=== PATIENT | male | born 2000 | race Caucasian/White ===

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

== ENCOUNTER 2020-03-04 03:08 | Emergency (ER) | payer OTHER, SELFPAY ==
[2020-03-04 03:10] VITALS: BP 124/64; PULSE 77; RESP 16; TEMP 36.6; O2SAT 99; BMI 26.6
--- NOTE | 2020-03-04 03:18 | ED.RN ---
RN CALLED FOR EKG, PULLED OLD EKGS FOR
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
--- NOTE | 2020-03-04 03:24 | EKG12_ITS ---
Test Reason : CHEST PAIN Blood Pressure : / mmHG Vent. Rate : 075 BPM Atrial Rate : 075 BPM P-R Int : 136 ms QRS Dur : 100 ms QT Int : 380 ms P-R-T Axes : 055 041 034 degrees QTc Int : 424 ms Normal sinus rhythm Normal ECG Confirmed by FREDERIC BILLS ([id number]), metropolitan editor YUMIKO PHELPS ([id number]) on 03/10/2020 8:04:41 AM Referred By: LISANDRA Confirmed By:FREDERIC BILLS
[2020-03-04] MEDS: Mag Hydrox/Al Hydrox/Simeth 30 ML UDC PO (03:50)
--- NOTE | 2020-03-04 04:13 | ED.VIS.CHEST ---
History of Present Illness Chief Complaint: Chest Pain Informant: Patient Narrative: Patient presenting for evaluation secondary to chest pain. Patient reports that he did eat just prior to going to bed. While he was laying in bed he had a sudden onset of chest pain. It is a continuous sharp type chest pain in his left anterior chest. He reports that it is worse with taking deep breath. There is no exertional component. No lightheadedness or shortness of breath. Patient denies any DVT or PE risk factors. Patient is a smoker but he denies any other cardiovascular risk factors. Patient denies recent infectious signs or symptoms such as fever cough. Review of systems otherwise negative. Past Medical History - Allergies and Home Meds Allergies/Adverse Reactions: Allergies prazosin Allergy (Verified 03/04/20 03:10) Other Primary Care Physician: Rosita Carlos NP-C [Primary Care Provider] - Prior records reviewed: Yes Past Medical History: None Surgical History: no surgical history Lives: Spouse/ Significant Other Smoking Status: Current every day smoker Alcohol: None Drugs: None Review of Systems All systems negative except as indicated General: Denies: Chills, Fever, Sweats Eyes: Denies: Visual changes - bilaterally, Diplopia ENT: Denies: Rhinorrhea, Sore throat Cardiovascular: Reports: Chest pain Respiratory: Denies: Dyspnea, Cough, Dyspnea on exertion Gastrointestinal: Denies: Abdominal pain, Nausea, Vomiting, Diarrhea, Melena, Hematochezia Genitourinary: Denies: Dysuria, Hematuria, Frequency Musculoskeletal: Denies: Back pain, Extremity Pain Skin: Denies: Rash, Wounds Neurological: Denies: Headache, Weakness, Numbness Physical Exam Vital Signs/Narrative: Vital Signs Temp Pulse Resp BP Pulse Ox 03/04/20 03:10 97.9 F 77 16 124/64 H 99 Inital Vital Signs reviewed: Yes General: Well nourished, Well developed, No Acute Distress Head: Normocephalic, Atraumatic Eyes: Perrl, EOMI ENT: Moist mucous membranes, No rhinorrhea Neck: Supple, Nontender Cardiovascular: Regular rate, Regular rhythm, No murmurs Respiratory: No distress, CTA bilaterally, Chest nontender Abdomen: Soft, Nontender, Nondistended, Normal bowel sounds Back: Nontender, Normal Inspection Extremities: Nontender, No edema Skin: Normal color, No rash Neurological: Alert, Oriented x3, Cranial nerves II-XII grossly intact, Normal Strength, Normal Sensation Psychological: Normal affect, Normal Mood Diagnostic/Tx/Re-eval Chest X-Ray - ED: 2 View, Read by ED Physician, Read by Radiologist, Normal - EKG Initial EKG Interpretation: - - Sinus rhythm at [address] segments normal T waves normal PA and QTc intervals no evidence of WPW or Brugada morphology no acute ischemia or arrhythmia - Medical Decision Making Patient presented for evaluation secondary to chest pain. He was ordered a GI cocktail. Chest x-ray by my personal review as well as radiology is negative. EKG unremarkable. Patient had modest improvement of his chest pain with a GI cocktail. Patient is capital PE RC negative, there is no indication for work-up of PE. Patient's heart score is a maximum of 1 there is no indication for further work-up for acute coronary syndrome. Patient's symptoms are likely secondary to reflux. Patient was recommended to discontinue late-night eating, and to follow-up with primary care as needed. ED Disposition - Plan for ED Patient: Disposition: Home or Assisted Living Diagnosis: Chest pain, GERD (gastroesophageal reflux disease) Instructions: ED Chest Pain NonCardiac, ED ACID INDIGESTION Adult Referrals: Rosita Carlos, YONI-C [Primary Care Provider] - 5-7 Days
[2020-03-04 04:24] VITALS: BP 101/55; PULSE 87; RESP 17; O2SAT 98
== END 2020-03-04 04:24 | disposition home or self-care (01) ==
PROVIDERS: Emergency Provider Emergency Medicine; PCP Nurse Practitioner Primary Care
DX: R07.9 Chest pain, unspecified (principal); K21.9 Gastro-esophageal reflux disease without esophagitis; F17.200 Nicotine dependence, unspecified, uncomplicated
CPT/HCPCS: 71046; 93005; 99283

== ENCOUNTER 2021-09-18 04:41 | Emergency (ER) | payer OTHER, SELFPAY ==
[2021-09-18 04:48] VITALS: BP 143/81; PULSE 72; RESP 16; TEMP 36.3; O2SAT 100; BMI 27.4
[2021-09-18 05:36] LABS: Absolute Lymphocyte Count 2.06 X10^3/uL (0.83-4.51); Absolute Neutrophil Count 3.6 X10^3/uL (2.0-7.7); Basophil# 0.04 X10^3/uL; Basophil% 0.6 % (0-1); Eosinophil# 0.03 X10^3/uL; Eosinophils% 0.5 % (0-5); Hematocrit 44.6 % (40-54); Hemoglobin 15.3 g/dL (13.0-16.5); Lymphocyte # 2.06 X10^3/ul (0.83-4.51); Lymphocyte % 33.1 % (19-41); Mean Corp Hgb Conc 34.3 g/dL (32-36); Mean Corpuscular Hgb 29.8 pg (27.0-32.0); Mean Corpuscular Volume 86.9 fL (80-94); Mean Platelet Vol. 9.5 fl (6.2-12.0); Monocyte# 0.43 X10^3/uL; Monocyte% 6.9 % (0-10); NRBC Flagged by Analyzer 0 % (0-5); Neutrophil # 3.64 X10^3/uL (2.7-7.7); Neutrophil % 58.6 % (47-70); POSITIVE MORPHOLOGY YES; Platelet Count 342 K/mm3 (150-450); RBC Distribution Width CV 12.5 % (11.6-14.6); RBC Distribution Width SD 39.7 fl (35.1-43.9); Red Blood Count 5.13 M/mm3 (4.6-6.2); White Blood Count 6.2 K/mm3 (4.4-11.0)
[2021-09-18 05:42] VITALS: RESP 16
[2021-09-18] MEDS: Diphth,Pertuss(Acell),Tet Vac 0.5 ML Vial IM (05:45)
[2021-09-18 05:51] LABS: Anion Gap 9 (5-15); BUN 10 mg/dL (7-18); BUN/Creat Ratio 10.6 RATIO (10-20); Calcium,Total 8.7 mg/dL (8.5-10.1); Chloride 109 mmol/L (98-107); Creatinine, Serum 0.94 mg/dL (0.70-1.30); EST Glomerular Filtration Rate 106 mL/min (>60); Est Glom Filt Rate - Afr Amer 129 mL/min (>60); Estimated Creatinine Clearance 112.18 ml/min; Glucose 93 mg/dL (74-106); Potassium 3.8 mmol/L (3.5-5.1); Sodium Level 144 mmol/L (136-145)
[2021-09-18 05:53] LABS: Acetaminophen (Tylenol) Level < 2.0 ug/mL (10.0-30.0); Salicylate < 1.7 mg/dL (2.8-20.0)
[2021-09-18 06:00] LABS: Amphetamine Urine VISTA NEGATIVE (<1000 ng/mL); Barbiturate Urine VISTA NEGATIVE (< 200 ng/mL); Benzodiazepine Urine VISTA NEGATIVE (< 200 ng/mL); Cocaine Urine VISTA NEGATIVE (< 300 ng/mL); Ecstacy Urine VISTA NEGATIVE (< 500 ng/mL); Methadone Urine VISTA NEGATIVE (< 300 ng/mL); PCP Urine VISTA NEGATIVE (< 25 ng/mL); THC Urine VISTA NEGATIVE (< 50 ng/mL); Vista UDS pH Range 6
[2021-09-18 06:04] VITALS: RESP 15
[2021-09-18 06:10] LABS: Differential Indicated SCAN CRITERIA MET
--- NOTE | 2021-09-18 07:09 | ED.RN ---
[facility] AWARE PT NEEDS TO BE SEEN. [facility] WILL BE CALLING.
--- NOTE | 2021-09-18 07:18 | NURSING ---
FAXED CHART TO [facility]
--- NOTE | 2021-09-18 07:19 | EDS_ITS ---
HPI History of Present Illness Chief Complaint: Suicidal Narrative Narrative: Patient is a 21-year-old male who was brought in by EMS with reported suicidal ideation. 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 He states that he still continues to drink however. He states that last evening he got drunk and does not remember cutting his forearms but states he must of done so when he was drunk. He states that he was sleeping when his fianc?e called 911 because he had cut himself. The patient states that he has no homicidal or suicidal ideation at this time. He does admit to one previous voluntary psychiatric admission approximately 3 to 4 years ago when he was using drugs. He states that this time he is here because of his fianc?e's concern but adamantly denies any homicidal or suicidal ideation. PFSH [facility] Home Medications NK 03/04/20 [History Last Taken Unknown] Allergy/AdvReac Type Severity Reaction Status Date / Time prazosin Allergy Other Verified 09/18/21 04:48 Social History Smoking Status: Current every day smoker tobacco type: cigarettes ROS ROS ED Constitutional Constitutional ED: Denies chills or fever(s) ENT ENT ED: Denies sore throat Cardiovascular Cardiovascular: Denies chest pain Respiratory/Chest Respiratory/Chest: Denies cough or dyspnea Gastrointestinal Gastrointestinal: Denies abdominal pain, diarrhea, nausea or vomiting Genitourinary Genitourinary ED: Denies dysuria Musculoskeletal Musculoskeletal: Denies myalgias Integumentary Denies rash Neurologic Neurologic: Denies headache(s) Psychiatric Psychiatric: Denies suicidal ideation or suicidal thoughts Hematologic/Lymphatic Hematologic/Lymphatic: Denies easy bleeding or easy bruising EXAM Physical Exam Const Vital Signs: 09/18/21 04:48 09/18/21 05:42 09/18/21 06:04 Temperature 97.3 F L Temperature Source Oral Pulse Rate 72 Respiratory Rate 16 16 15 Blood Pressure 143/81 H Blood Pressure Mean 101 Pulse Ox 100 Oxygen Delivery Method Room Air Positive well nourished and well developed General Appearance ED: well developed Eyes PERRL and EOMs intact bilaterally Neck supple Resp normal respiratory effort and clear to auscultation bilaterally Cardio regular rate and regular rhythm GI normal to inspection, nondistended, normoactive bowel sounds, non-tender, non- distended and no masses Auscultation: normoactive bowel sounds Palpation: soft Extremity normal to inspection Extremity Narrative: Patient has linear superficial abrasions to the volar aspect of the left forearm. He has similar abrasions to the right forearm which are slightly deeper in nature but only dermal layer deep and without active bleeding or foreign body present. No ligamentous or tendon injury noted Neuro oriented x3 and CN's II-XII intact bilaterally Sensorium / Orientation: alert Motor Exam: strength 5/5 throughout Psych mental status grossly normal Psych Narrative: No homicidal or suicidal ideation Skin no rashes or lesions noted Skin Narrative: Soft tissue abrasions to the bilateral forearms as documented above MDM MDM MDM Narrative Medical decision making narrative: Patient presented to the ER in no acute distress and adamantly denied any homicidal or suicidal ideation. At this time there is a conflict and history between the patient's fianc? and the patient. However as the patient appears clinically sober and is adamantly denying homicidal or suicidal ideation I will not perform a pink slip on him at this time. However patient will have basic laboratory screens obtained and will still talk to crisis center to get a second opinion if patient should need psychiatric placement. I feel that if crisis center agrees that patient is continuing to say is not homicidal or suicidal and are comfortable with discharge that is an appropriate/acceptable plan at this time Lab Data Attestation: I reviewed the patient's lab results. Labs: Laboratory Results - last 24 hr 09/18/21 09/18/21 09/18/21 05:20 05:20 05:20 WBC 6.2 RBC 5.13 Hgb 15.3 Hct 44.6 MCV 86.9 MCH 29.8 MCHC 34.3 RDW Std Deviation 39.7 RDW Coeff of Barry 12.5 Plt Count 342 MPV 9.5 Immature Gran % (Auto) 0.300 Neut % (Auto) 58.6 Lymph % (Auto) 33.1 Mclean % (Auto) 6.9 Eos % (Auto) 0.5 Baso % (Auto) 0.6 Absolute Neuts (auto) 3.6 Absolute Lymphs (auto) 2.06 Nucleated RBC % 0 Sodium Potassium Chloride Carbon Dioxide Anion Gap BUN Creatinine Estim Creat Clear Calc Est GFR (MDRD) Af Amer Est GFR (MDRD) Non-Af BUN/Creatinine Ratio Glucose Calcium Salicylates < 1.7 L Urine Opiates Screen NEGATIVE Urine Methadone Screen NEGATIVE Acetaminophen < 2.0 L Ur Barbiturates Screen NEGATIVE Ur Phencyclidine Scrn NEGATIVE Ur Amphetamines Screen NEGATIVE U Methamphetamin-MDMA NEGATIVE U Benzodiazepines Scrn NEGATIVE Urine Cocaine Screen NEGATIVE U Cannabinoids Screen NEGATIVE Ur Drug Screen Comment Ethyl Alcohol 142.0 09/18/21 05:20 WBC RBC Hgb Hct MCV MCH MCHC RDW Std Deviation RDW Coeff of Barry Plt Count MPV Immature Gran % (Auto) Neut % (Auto) Lymph % (Auto) Mclean % (Auto) Eos % (Auto) Baso % (Auto) Absolute Neuts (auto) Absolute Lymphs (auto) Nucleated RBC % Sodium 144 Potassium 3.8 Chloride 109 H Carbon Dioxide 26.0 Anion Gap 9 BUN 10 Creatinine 0.94 Estim Creat Clear Calc 112.18 Est GFR (MDRD) Af Amer 129 Est GFR (MDRD) Non-Af 106 BUN/Creatinine Ratio 10.6 Glucose 93 Calcium 8.7 Salicylates Urine Opiates Screen Urine Methadone Screen Acetaminophen Ur Barbiturates Screen Ur Phencyclidine Scrn Ur Amphetamines Screen U Methamphetamin-MDMA U Benzodiazepines Scrn Urine Cocaine Screen U Cannabinoids Screen Ur Drug Screen Comment Ethyl Alcohol Discharge Plan Triage Chief Complaint: Suicidal ED Provider: John Ryder Dx/Rx/DC Orders Clinical Impression: Alcohol intoxication, Abrasion of forearm without infection, Depression Instructions: Depression: Tips to Help Yourself Prescriptions: No Action NK RF: 0 Primary Care Provider: Rosita Carlos NP Referrals: Rosita Carlos NP, TELEPHONE WORKER-C [Primary Care Provider] -
[2021-09-18 07:38] VITALS: RESP 16
[2021-09-18 08:06] VITALS: BP 135/76; PULSE 81; RESP 14; O2SAT 97
== END 2021-09-18 08:08 | disposition home or self-care (01) ==
PROVIDERS: Emergency Provider Emergency Medicine; PCP Nurse Practitioner Primary Care; Visit Provider Emergency Medicine
DX: F10.129 Alcohol abuse with intoxication, unspecified (principal); F32.A Depression, unspecified; F17.210 Nicotine dependence, cigarettes, uncomplicated; S50.819A Abrasion of unspecified forearm, initial encounter; X58.XXXA Exposure to other specified factors, initial encounter
CPT/HCPCS: 80048; 80307; 80329; 82077; 85025; 87426; 90715; 99285; G0480

== ENCOUNTER 2022-03-20 14:48 | Emergency (ER) | payer OTHER, SELFPAY ==
[2022-03-20 14:49] VITALS: BP 130/65; PULSE 74; RESP 16; TEMP 36.6; O2SAT 100; BMI 25.8
--- NOTE | 2022-03-20 15:19 | CT_ITS ---
STUDY: CT ABDOMEN AND PELVIS WITH CONTRAST REASON FOR EXAM: Male, 22 years old. Luq pain RADIATION DOSAGE (If Supplied By Facility): CTDIvol = ( 9.95 ) mGy, DLP = ( 491.57 ) mGycm TECHNIQUE: Transaxial images were obtained from the dome of the diaphragm to the symphysis pubis without oral contrast. IV 100mL Isovue-370 was administered. Sagittal and coronal images were reconstructed. Individualized dose optimization techniques were used for this CT. COMPARISON: None. FINDINGS: 3 mm noncalcified smoothly marginated nodule in the right lung base. No specific follow-up given patient''s age. The visualized portions of the heart are within normal limits. Normal liver. Normal gallbladder and extrahepatic biliary system. Normal spleen. Normal pancreas. Normal bilateral adrenal glands. Normal right kidney. Normal left kidney. Normal visualized stomach. Normal small intestine. Mild rectal wall thickening and perirectal stranding evident on image 88 series 2. Trace pelvic free fluid. There is non-visualization of the appendix. Normal abdominal aorta. Normal inferior vena cava. Normal retroperitoneum. Normal urinary bladder. Normal abdominal wall. Normal osseous structures. CT/Abdomen/Pelvis W IV Cont ONLY IMPRESSION: Mild rectal wall thickening and perirectal stranding suggesting proctitis/colitis. Trace pelvic free fluid. Electronically Signed: Jomar Barragan MD ([place]) at 16:09 EDT ,
--- NOTE | 2022-03-20 15:20 | EDS_ITS ---
HPI HPI - GI History of Present Illness Chief Complaint: GI Bleed Narrative Narrative: 22-year-old male presenting with left upper quadrant abdominal pain which is mild. He does state the pain migrates periodically around his abdomen. He has had a couple episodes where he was nauseous and vomit in his mouth but did not spit it out because he was driving. He has not been retching. Patient does report that he is an alcoholic and quit drinking 4 days ago. He states that he drank about a 12 pack of beer a day. He does not think he is in withdrawal. He notes that the last couple of days has had some blood in his stool. He states is not clotting. He has not any history of GI bleeding. He states he has no history of Crohn's or UC colitis. No fevers. He is not lightheaded or dizzy. He notes no skin color changes. No history of hemorrhoids. [facility] Medical History Substance abuse Home Medications ondansetron 4 mg disintegrating tablet 4 mg PO Q8H PRN nausea and vomiting #10 tabs 03/20/22 [Rx Last Taken Unknown] Allergy/AdvReac Type Severity Reaction Status Date / Time prazosin Allergy Other Verified 03/20/22 14:51 Social History Smoking Status: Current every day smoker tobacco type: e-cigarettes ROS ROS ED Constitutional Constitutional ED: Denies chills or fever(s) ENT ENT ED: Denies rhinorrhea or sore throat Cardiovascular Cardiovascular: Denies chest pain or palpitations Respiratory/Chest Respiratory/Chest: Denies cough or dyspnea Gastrointestinal Gastrointestinal: Reports abdominal pain, nausea, vomiting and other Details: Bloody stools with clots Genitourinary Genitourinary ED: Denies dysuria or hematuria Musculoskeletal Musculoskeletal: Denies arthralgias or back pain Integumentary Denies abscess or Abrasions Neurologic Neurologic: Denies headache(s) or paresthesias Psychiatric Psychiatric: Denies anxiety or depression EXAM Physical Exam Const Vital Signs: 03/20/22 14:49 Temperature 98 F Temperature Source Temporal Pulse Rate 74 Respiratory Rate 16 Blood Pressure 130/65 H Blood Pressure Mean 86 Pulse Ox 100 Oxygen Delivery Method Room Air Positive well nourished and well developed General Appearance ED: well developed and NAD; Negative for pallor HEENT Reports moist mucous membranes normocephalic and atraumatic Eyes PERRL and EOMs intact bilaterally General Eye ED: Negative for pale conjunctiva or scleral icterus Resp normal respiratory effort Cardio regular rate and regular rhythm GI Palpation: tender LUQ; Negative for guarding or rigid Narrative: No hemorrhoids noted. No fissures. No active bleeding. Back/Spine no CVA tenderness Neuro CN's II-XII intact bilaterally Sensorium / Orientation: alert, oriented to person, oriented to place and oriented to time Motor Exam: strength 5/5 throughout Psych mental status grossly normal and thought process normal Skin General Skin Exam: Negative for jaundice or pallor MDM MDM MDM Narrative Medical decision making narrative: 20-year-old male presenting with bloody stools for a few days. He states is sporadic. He has pain in the left upper quadrant and sometimes he has pain around his rectum but he states the pain in his rectum he was in there for a very long time. He states this also comes and goes but no history of Crohn's or UC. Blood work today shows no leukocytosis. Hemoglobin is stable at 15.0 is unchanged. Platelets normal at 313. Renal function and electrolytes within normal limits. LFTs are normal. Lipase is normal. Patient required nothing for pain or nausea in the ED. I obtained a CT of the abdomen pelvis with IV contrast which shows mild rectal wall thickening suggesting colitis. He has no urinary symptoms. I suspect that his colitis is very mild as he has a benign exam and he has not have any pain around his rectum currently. He only has a pain in the left upper quadrant and his abdominal is benign. I recommended that he try changing his diet to a bland diet. He is given Zofran for nausea. He is encouraged with plenty of fluids. The patient did inform me that he is 4 days out from quitting drinking and has been a long-term drinker of 12 pack a day of beer. He is not withdrawing in any way he does not feel. He does not request any resources for this. Since he is on his fourth day and is asymptomatic I feel he will likely be well. He is encouraged to continue to abstain from drinking. Patient was given follow-up with Dr. Coello. Return precautions were discussed at length. Impression: 1. GI bleed stable 2. Colitis Lab Data Attestation: I reviewed the patient's lab results. Labs: Laboratory Results - last 24 hr 03/20/22 03/20/22 15:27 15:27 WBC 6.6 RBC 4.89 Hgb 15.0 Hct 42.5 MCV 86.9 MCH 30.7 MCHC 35.3 RDW Std Deviation 38.2 RDW Coeff of Barry 11.9 Plt Count 313 MPV 10.0 Immature Gran % (Auto) 0.300 Neut % (Auto) 62.4 Lymph % (Auto) 23.5 Love % (Auto) 9.1 Eos % (Auto) 4.1 Baso % (Auto) 0.6 Absolute Neuts (auto) 4.1 Absolute Lymphs (auto) 1.55 Nucleated RBC % 0 Sodium 140 Potassium 3.9 Chloride 108 H Carbon Dioxide 28.0 Anion Gap 4 L BUN 18 Creatinine 1.04 Estim Creat Clear Calc 100.54 Est GFR (MDRD) Af Amer 115 Est GFR (MDRD) Non-Af 95 BUN/Creatinine Ratio 17.3 Glucose 120 H Calcium 8.8 Total Bilirubin 0.30 AST 24 ALT 32 Alkaline Phosphatase 85 Total Protein 6.9 Albumin 3.9 Globulin 3.0 Albumin/Globulin Ratio 1.3 Lipase 174 Radiography Diagnostic Testing: Clinical Impression(s) from Imaging Studies Abdomen/Pelvis CT 03/20/22 15:19 IMPRESSION: Mild rectal wall thickening and perirectal stranding suggesting proctitis/colitis. Trace pelvic free fluid. Electronically Signed: Jomar Barragan MD ([place]) at 16:09 EDT Reading Location ID and State: [facility] / [place] , Service support , Discharge Plan Triage Chief Complaint: GI Bleed ED Provider: Kennedy Cline Dx/Rx/DC Orders Instructions: ED Understanding Colitis, ED Lower GI Bleeding (Stable) Prescriptions: New ondansetron 4 mg tablet,disintegrating 4 mg PO Q8H PRN (Reason: nausea and vomiting) Qty: 10 0RF Primary Care Provider: Rosita Carlos NP Referrals: Friend,DO Devyn [STAFF PHYSICIAN] - 3-5 Days Rosita Carlos NP, KETTLE COOK-C [Primary Care Provider] - Disposition Disposition: Home, Self Care Discharge Date/Time: 03/20/22 16:50
[2022-03-20 15:41] LABS: Absolute Lymphocyte Count 1.55 X10^3/uL (0.83-4.51); Absolute Neutrophil Count 4.1 X10^3/uL (2.0-7.7); Basophil# 0.04 X10^3/uL; Basophil% 0.6 % (0-1); Eosinophil# 0.27 X10^3/uL; Eosinophils% 4.1 % (0-5); Hematocrit 42.5 % (40-54); Lymphocyte # 1.55 X10^3/ul (0.83-4.51); Lymphocyte % 23.5 % (19-41); Mean Corp Hgb Conc 35.3 g/dL (32-36); Mean Corpuscular Hgb 30.7 pg (27.0-32.0); Mean Corpuscular Volume 86.9 fL (80-94); Monocyte% 9.1 % (0-10); NRBC Flagged by Analyzer 0 % (0-5); Neutrophil # 4.12 X10^3/uL (2.7-7.7); Neutrophil % 62.4 % (47-70); Platelet Count 313 K/mm3 (150-450); RBC Distribution Width CV 11.9 % (11.6-14.6); RBC Distribution Width SD 38.2 fl (35.1-43.9); Red Blood Count 4.89 M/mm3 (4.6-6.2); White Blood Count 6.6 K/mm3 (4.4-11.0)
[2022-03-20 15:54] LABS: ALB/GLOB Ratio 1.3 RATIO (0.9-2.4); AST(SGOT) 24 U/L (15-37); Alanine Aminotransfer ALT/SGPT 32 U/L (16-61); Albumin, Serum 3.9 g/dL (3.2-5.0); Alkaline Phosphatase 85 U/L (45-117); Anion Gap 4 (5-15); BUN 18 mg/dL (7-18); BUN/Creat Ratio 17.3 RATIO (10-20); Calcium,Total 8.8 mg/dL (8.5-10.1); Chloride 108 mmol/L (98-107); Creatinine, Serum 1.04 mg/dL (0.70-1.30); EST Glomerular Filtration Rate 95 mL/min (>60); Est Glom Filt Rate - Afr Amer 115 mL/min (>60); Estimated Creatinine Clearance 100.54 ml/min; Glucose 120 mg/dL (74-106); Lipase 174 U/L (73-393); Potassium 3.9 mmol/L (3.5-5.1); Protein, Total 6.9 g/dL (6.4-8.2); Sodium Level 140 mmol/L (136-145)
== END 2022-03-20 16:50 | disposition home or self-care (01) ==
PROVIDERS: Emergency Provider Student in an Organized Health Care Education/Training Program; PCP Nurse Practitioner Primary Care; Visit Provider Student in an Organized Health Care Education/Training Program
DX: K92.2 Gastrointestinal hemorrhage, unspecified (principal); F17.200 Nicotine dependence, unspecified, uncomplicated; F10.10 Alcohol abuse, uncomplicated
CPT/HCPCS: 74177; 80053; 83690; 85025; 99283; Q9967; A4216

== ENCOUNTER 2023-01-25 13:08 | Emergency (ER) | payer OTHER, SELFPAY ==
[2023-01-25 13:09] VITALS: BP 126/75; PULSE 71; RESP 16; TEMP 36.8; O2SAT 98; BMI 29.5
--- NOTE | 2023-01-25 13:44 | ED.VIS.GI ---
HPI HPI - GI History of Present Illness Chief Complaint: Abd Pain Detail of Chief Complaint: Nausea, vomiting and diarrhea. Informant: patient Abdominal Pain/Flank Pain Onset: Today and Yesterday Context: Gradual Onset Timing: Intermittent Quality: Cramping Location: LLQ Current Severity: Mild Maximum Severity: Mild Worsened by: Nothing Relieved by: Nothing Nausea/Vomiting/Emesis GI Symptom: Positive for Nausea and Vomiting Onset: Today and Yesterday Severity: Mild Diarrhea/Melena/Hematochezia GI Symptom: Positive for Diarrhea; Negative for Melena or Hematochezia Onset: Today and Yesterday Stool Quality: Positive for Loose Severity: Mild Associated Symptoms Associated Symptoms: Negative for Dysuria, Frequency or Hematuria Narrative Narrative: 22-year-old male missing a past medical or surgical history. No prior abdominal surgeries. States yesterday and today has had nausea vomiting and diarrhea. He said he has had green stool. And mild left lower quadrant burning and cramping. Denies any dysuria. No history of stones. No trauma to his abdomen. No one else at home is ill. He is able to hold down liquids. Prior similar symptoms: Yes Recent Illness/Hospitalization: No PFSH PFSH Medical History Substance abuse Home Medications ondansetron 4 mg disintegrating tablet 4 mg PO Q8H PRN nausea and vomiting #10 tabs 03/20/22 [Rx Last Taken Unknown] Allergy/AdvReac Type Severity Reaction Status Date / Time prazosin Allergy Other Verified 01/25/23 13:11 Social History Smoking Status: Current every day smoker tobacco type: e-cigarettes ROS ROS ED ROS Narrative Nausea, vomiting and diarrhea. Left lower quadrant abdominal cramping. Review of Systems ROS Unobtainable: Denies due to encephalopathy Constitutional Constitutional ED: Denies chills ENT ENT ED: Denies ear pain Cardiovascular Cardiovascular: Denies chest pain Respiratory/Chest Respiratory/Chest: Denies cough Gastrointestinal Gastrointestinal: Reports abdominal pain, diarrhea, nausea and vomiting; Denies constipation or melena Genitourinary Genitourinary ED: Denies dysuria or hematuria Musculoskeletal Musculoskeletal: Denies arthralgias Integumentary Denies abscess Neurologic Neurologic: Denies headache(s) Psychiatric Psychiatric: Denies anxiety Endocrine Endocrinology: Denies polydipsia Hematologic/Lymphatic Hematologic/Lymphatic: Denies easy bleeding Allergic/Immunologic Allergic/Immunologic ED: Denies mouth swelling or tongue swelling EXAM Physical Exam Narrative Exam Narrative: I do a male no acute distress. Vital signs stable afebrile. He does not look septic nor toxic nor dehydrated. HEENT exam unremarkable. Moist extremities. Neck nontender no lymphadenopathy. Lungs clear. Heart regular rate and rhythm rate about 70 no murmur. Chest wall nontender. Abdomen soft, nontender, nondistended normal bowel sounds no peritoneal signs. He has no significant abdominal tenderness. There is no hernia or mass. No signs of obstruction. No organomegaly. Normal bowel sounds and soft. Moving all 4 extremities. Back nontender. Neurologic exam normal. Very benign well-appearing exam. Const Vital Signs: 01/25/23 13:09 Temperature 98.3 F Temperature Source Temporal Pulse Rate 71 Respiratory Rate 16 Blood Pressure 126/75 H Blood Pressure Mean 92 Pulse Ox 98 Oxygen Delivery Method Room Air Positive well nourished and well developed; Negative for obese, cachectic, contractures or unkempt General Appearance ED: well developed and NAD; Negative for unkempt, cachectic, contractures or pallor Nutritional Appearance: Negative for cachectic or obese HEENT Reports moist mucous membranes normocephalic and atraumatic; Negative for trauma or tenderness Eyes PERRL and EOMs intact bilaterally General Eye ED: Negative for pale conjunctiva or scleral icterus Neck no lymphadenopathy, supple and no JVD General: Negative for tenderness Carotids: Negative for other Lymph Lymphatic: Negative for other Resp normal respiratory effort and clear to auscultation bilaterally Effort and Inspection: Negative for respiratory distress Auscultation: Negative for rales, rhonchi or wheezes Cardio regular rate, regular rhythm, S1 normal heart sound, S2 normal heart sound and no murmurs Rate: Negative for bradycardia or tachycardic Rhythm: Negative for abnormal rhythm GI non-tender, non-distended and no masses Inspection: Negative for abdominal distention Auscultation: normoactive bowel sounds Palpation: soft; Negative for tender, guarding, rigid, hepatomegaly, splenomegaly, hernia, mass, pulsatile mass or rebound tenderness present Back/Spine no CVA tenderness General Back: Negative for CVA tenderness Cervical Spine: Negative for cervical spine tenderness Thoracic Spine / Upper Back: Negative for thoracic spinal tenderness Lumbar Spine / Lower Back: Negative for lumbar spinal tenderness Coccyx: Negative for other Extremity full ROM General Extremety ED: Negative for edema or tenderness General Extremity: Negative for edema Neuro CN's II-XII intact bilaterally and moves all extremities Sensorium / Orientation: alert, oriented to person, oriented to place and oriented to time; Negative for orientation impaired, confused, lethargic or stuporous Motor Exam: strength 5/5 throughout Psych mental status grossly normal and thought process normal Appearance: Negative for unkempt Attitude: No agitated Mood & Affect: Negative for depressed or anxious Skin no wounds General Skin Exam: Negative for jaundice or pallor Lesions: no lesions Rashes: no rashes Trauma: Negative for abrasion Nails: Negative for discolored MDM MDM MDM Narrative Medical decision making narrative: Well-appearing 22-year-old sounds like he has a viral gastroenteritis. Exam benign. He does not need any labs or imaging. He is not dehydrated he does not need IV fluids. I will give him p.o. Zofran. He will be discharged home with Zofran prescription. Return if worse or follow-up if is not improving. Clinically this is not cholecystitis, appendicitis or diverticulitis. There is no bowel obstruction. History & Record Review Discussion w/independent historian: Patient Lab Data Attestation: I reviewed the patient's lab results. Discharge Plan Triage Chief Complaint: Abd Pain ED Provider: Thom Tirado Dx/Rx/DC Orders Clinical Impression: Viral gastroenteritis Instructions: Viral Gastroenteritis Prescriptions: No Action ondansetron 4 mg tablet,disintegrating 4 mg PO Q8H PRN (Reason: nausea and vomiting) Qty: 10 0RF Primary Care Provider: Rosita Carlos NP Referrals: Rosita Carlos INSURANCE CLAIMS SPECIALIST, [facility]URANCE CLAIMS [facility]IST[facility] [Primary Care Provider] - 3-5 Days if not improving Activity Restrictions/Additional Instructions: Zofran as needed for nausea and vomiting. Plenty of fluids and rest. Increase your diet slowly as tolerated. Follow-up if not improving or return if worse. Disposition Disposition: Home, Self Care
[2023-01-25] MEDS: Ondansetron ODT 4 MG Tablet PO (14:01)
== END 2023-01-25 14:00 | disposition home or self-care (01) ==
PROVIDERS: Emergency Provider Emergency Medicine; PCP Nurse Practitioner Primary Care; Visit Provider Emergency Medicine
DX: A08.4 Viral intestinal infection, unspecified (principal); F17.290 Nicotine dependence, other tobacco product, uncomplicated
CPT/HCPCS: 99283

== ENCOUNTER 2023-11-14 13:19 | Emergency (ER) | payer OTHER, SELFPAY ==
[2023-11-14 13:20] VITALS: BP 125/100; PULSE 65; RESP 18; TEMP 36.6; O2SAT 97; BMI 28.0
--- NOTE | 2023-11-14 13:24 | ED.RN ---
Pt decided not to stay d/t there being a wait.
--- OUTSIDE RECORDS SUMMARY | 2023-11-14 17:58 | XMS RPT_ITS | CCD ---
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 the upper lobes, which are likely infectious or inflammatory in etiology. Small hiatal hernia. No acute traumatic injury throughout the abdomen or pelvis. Moderate colonic stool burden. Correlate for symptoms of constipation. MACRO: None. Signed by: Suleiman Solano 11/12/2023 3:06 AM Dictation workstation: [id number] CT head wo IV contrast Final Result No acute intracranial abnormality. Mild soft tissue swelling left frontal scalp. No acute facial bone fracture. Mild right periorbital/supraorbital soft tissue swelling. No acute fracture or traumatic subluxation of the cervical spine. Mild swelling of the subcutaneous soft tissues on the left at level of L2-3. Findings concerning for soft tissue injury. Correlate with exam. MACRO: None Signed by: Lori Puente 11/12/2023 2:06 AM Dictation workstation: [id number] CT cervical spine wo IV contrast Final Result No acute intracranial abnormality. Mild soft tissue swelling left frontal scalp. No acute facial bone fracture. Mild right periorbital/supraorbital soft tissue swelling. No acute fracture or traumatic subluxation of the cervical spine. Mild swelling of the subcutaneous soft tissues on the left at level of L2-3. Findings concerning for soft tissue injury. Correlate with exam. MACRO: None Signed by: Lori Puente 11/12/2023 2:06 AM Dictation workstation: [id number] CT maxillofacial bones wo IV contrast Final Result No acute intracranial abnormality. Mild soft tissue swelling left frontal scalp. No acute facial bone fracture. Mild right periorbital/supraorbital soft tissue swelling. No acute fracture or traumatic subluxation of the cervical spine. Mild swelling of the subcutaneous soft tissues on the left at level of L2-3. Findings concerning for soft tissue injury. Correlate with exam. MACRO: None Signed by: Lori Puente 11/12/2023 2:06 AM Dictation workstation: [id number] XR chest 2 views Final Result 1. No evidence of acute cardiopulmonary process. MACRO: None Signed by: Jordi Brownlee 11/12/2023 1:38 AM Dictation workstation: [id number] ED Course & MDM ED Course as of 11/12/23 0331 Sun Nov 12, 2023 0236 Twelve-lead EKG interpreted by myself at 0115 1 normal sinus rhythm at 96 2 no ectopy 3 normal axis [MS] ED Course User Index [MS] To Ellis Yany, DO Diagnoses as of 11/12/23 0331 Facial contusion, initial encounter Acute alcoholic intoxication without complication ([facility]) Medical Decision Making 1 neurochecks every 4 hours, any changes return to ED 2 clean and apply Polysporin to abrasions twice daily 3 Motrin or Tylenol for pain 4 follow-up with family medical doctor 1 to 2 days, if worse return to ED. Procedure Procedures To Slade DO 11/12/23 0331 [facility] Work Phone: 06-02-2023 Hospital Discharge instructions Patient Education 06/02/2023 18:46:06 GERD (Adult) GERD (Adult) The esophagus is a tube that carries food from the mouth to the stomach. A valve (the LES, lower esophageal sphincter) at the lower end of the esophagus prevents stomach acid from flowing upward. When this valve doesn't work properly, stomach contents may repeatedly flow back up (reflux) into the esophagus. This is called gastroesophageal reflux disease (GERD). GERD can irritate the esophagus. It can cause problems with pain, swallowing or breathing. In severe cases, GERD can cause recurrent pneumonia (from aspiration or breathing in particles) or other serious problems. Symptoms of reflux include burning, pressure or sharp pain in the upper abdomen or mid to lower chest. The pain can spread to the neck, back, or shoulder. There may be belching, an acid taste in the back of the throat, chronic cough, or sore throat, or hoarseness. GERD symptoms often occur during the day after a big meal. They can also occur at night when lying down. Home care Lifestyle changes can help reduce symptoms. If needed, your healthcare provider may prescribe medicines. Symptoms often improve with treatment, but if treatment is stopped, the symptoms often return after a few months. So most persons with GERD will need to continue treatment or get treatment on and off. Lifestyle changes Limit or avoid fatty, fried, and spicy foods, as well as coffee, chocolate, mint, and foods with high acid content such as tomatoes and citrus fruit and juices (orange, grapefruit, lemon). Don t eat large meals, especially at night. Frequent, smaller meals are best. Don't lie down right after eating. And don t eat anything 3 hours before going to bed. Don't drink alcohol or smoke. As much as possible, stay away from second hand smoke. If you are overweight, losing weight will reduce symptoms. Don't wear tight clothing around your stomach area. If your symptoms occur during sleep, use a foam wedge to elevate your upper body (not just your head.) Or, place 4 blocks under the head of your bed. Or use 2 bed risers under your bedframe. Medicines If needed, medicines can help relieve the symptoms of GERD and prevent damage to the esophagus. Discuss a medicine plan with your healthcare provider. This may include one or more of the following medicines: Antacids to help neutralize the normal acids in your stomach. Acid blockers (Histamine or H2 blockers) to decrease acid production. Acid inhibitors (proton pump inhibitors PPIs) to decrease acid production in a different way than the blockers. They may work better, but can take a little longer to take effect. Take an antacid 30 to 60 minutes after eating and at bedtime, but not at the same time as an acid alyse. Try not to take medicines such as ibuprofen and aspirin. If you are taking aspirin for your heart or other medical reasons, talk to your healthcare provider about stopping it. Follow-up care Follow up with your healthcare provider or as advised by our staff. When to seek medical advice Call your healthcare provider if any of the following occur: Stomach pain gets worse or moves to the lower right abdomen (appendix area) Chest pain appears or gets worse, or spreads to the back, neck, shoulder, or arm An gtqv-fik-qdcezhi trial of medicine doesn't relieve your symptoms Weight loss that can't be explained Trouble or pain swallowing Frequent vomiting (can t keep down liquids) Blood in the stool or vomit (red or black in color) Feeling weak or dizzy Fever of 100.4 F (38 C) or higher, or as directed by your healthcare provider [id number] [employer]. [address] [place] [address]. All rights reserved. This information is not intended as a substitute for professional medical care. Always follow your healthcare professional's instructions. Follow Up Care 06/02/2023 17:20:22 With:JOSE C WILCOX Address: [address] [facility] [place] [address]- [phone] Business (1) When:2-4 days [facility] 06-02-2023 Note Discharge Instructions Thank you for allowing [facility] to assist you with your healthcare needs. The following is important discharge information regarding your hospital visit. Diagnosis from Today's Visit Chest pain GERD (gastroesophageal reflux disease) What to Do Next Instructions from Your Care Team No qualifying data available. Post Acute Orders No qualifying data available. You Need to Schedule the Following Appointments Follow Up with JOSE C WILCOX When Within 2-4 days Where: [address] [facility] [place] [address] [phone] Business (1) Allergies prazosin (Seizure) Medications Please ask your primary doctor or pharmacist before taking any other medication not listed, including over the counter drugs, herbal medications, vitamins and or supplements as they may interact with your home medications. What How Much When Instructions Last Dose Changed omeprazole (omeprazole 20 mg oral delayed release capsule) 1 cap by mouth Once a day Changed omeprazole (omeprazole 40 mg oral delayed release capsule) 1 cap by mouth Once a day Printed Prescription Please take this list to your next doctor s visit. Bring all medications you take, including over the counter medications, herbals and other supplements with you to your doctor s visit. Patients and families are reminded to discard old lists and to update any records with all medication providers or retail pharmacies. Medication Leaflets omeprazole (oh MEP ra zol) FIRST Omeprazole, Good Sense Omeprazole, Omeprazole + SyrSpend SF Martha, PriLOSEC, PriLOSEC OTC What is the most important information I should know about omeprazole? Omeprazole can cause kidney problems. Tell your doctor if you are urinating less than usual, or if you have blood in your urine. Diarrhea may be a sign of a new infection. Call your doctor if you have diarrhea that is watery or has blood in it. Omeprazole may cause new or worsening symptoms of lupus. Tell your doctor if you have joint pain and a skin rash on your cheeks or arms that worsens in sunlight. You may be more likely to have a broken bone while taking this medicine termite inspector or more than once per day. What is omeprazole? Omeprazole is used to treat symptoms of gastroesophageal reflux disease (GERD) and other conditions caused by excess stomach acid. Omeprazole is also used to promote healing of erosive esophagitis (damage to your esophagus caused by stomach acid). Omeprazole may also be given together with antibiotics to treat gastric ulcer caused by infection with Helicobacter pylori (H. pylori). Hkwx-mmq-mguwece (OTC) omeprazole is used in adults to help control heartburn that occurs 2 or more days per week. This medicine not for immediate relief of heartburn symptoms. OTC omeprazole must be taken on a regular basis for 14 days in a row. Omeprazole may also be used for purposes not listed in this medication guide. What should I discuss with my healthcare provider before taking omeprazole? Heartburn can mimic early symptoms of a heart attack. Get emergency medical help if you have chest pain that spreads to your jaw or shoulder and you feel sweaty or light-headed. You should not use omeprazole if you are allergic to it, or if: you are also allergic to medicines like omeprazole, such as esomeprazole, lansoprazole, pantoprazole, rabeprazole, Nexium, Prevacid, Protonix, and others; you had breathing problems, kidney problems, or a severe allergic reaction after taking omeprazole in the past; or you also take HIV medication that contains rilpivirine (such as Complera, Edurant, Odefsey, Juluca). Ask a doctor or pharmacist if this medicine is safe to use if you have: trouble or pain with swallowing; bloody or black stools, vomit that looks like blood or coffee grounds; heartburn that has lasted for over 3 months; frequent chest pain, heartburn with wheezing; unexplained weight loss; nausea or vomiting, stomach pain; liver disease; low levels of magnesium in your blood; or osteoporosis or low bone mineral density (osteopenia). You may be more likely to have a broken bone in your hip, wrist, or spine while taking a proton pump inhibitor long-term or more than once per day. Talk with your doctor about ways to keep your bones healthy. Ask a doctor before using this medicine if you are or . Do not give this medicine to a child without medical advice. How should I take omeprazole? Follow all directions on your prescription label and read all medication guides or instruction sheets. Use the medicine exactly as directed. Use Prilosec OTC (ziyo-faq-hznutmv) exactly as directed on the label, or as prescribed by your doctor. Read and carefully follow any Instructions for Use provided with your medicine. Ask your doctor or pharmacist if you do not understand these instructions. Shake the oral suspension (liquid) before you measure a dose. Use the dosing syringe provided, or use a medicine dose-measuring device (not a kitchen spoon). If you cannot swallow a capsule whole, open it and sprinkle the medicine into a spoonful of applesauce. Swallow the mixture right away without chewing. Do not save it for later use. You must dissolve omeprazole powder in a small amount of water. This mixture can either be swallowed or given through a nasogastric (NG) feeding tube using a catheter-tipped syringe. Use this medicine for the full prescribed length of time, even if your symptoms quickly improve. OTC omeprazole should be taken for only 14 days in a row. It may take 1 to 4 days before your symptoms improve. Allow at least 4 months to pass before you start a new 14-day course of treatment. Call your doctor if your symptoms do not improve, or if they get worse. Some conditions are treated with a combination of omeprazole and antibiotics. Use all medications as directed. This medicine can affect the results of certain medical tests. Tell any doctor who treats you that you are using omeprazole. Store at room temperature away from moisture and heat. What happens if I miss a dose? Take the medicine as soon as you can, but skip the missed dose if it is almost time for your next dose. Do not take two doses at one time. What happens if I overdose? Seek emergency medical attention or call the Poison Help line at . What should I avoid while taking omeprazole? This medicine can cause diarrhea, which may be a sign of a new infection. If you have diarrhea that is watery or bloody, call your doctor before using anti-diarrhea medicine. What are the possible side effects of omeprazole? Get emergency medical help if you have signs of an allergic reaction: hives; difficulty breathing; swelling of your face, lips, tongue, or throat. Stop using omeprazole and call your doctor at once if you have: severe stomach pain, diarrhea that is watery or bloody; new or unusual pain in your wrist, thigh, hip, or back; seizure (convulsions); kidney problems--fever, rash, nausea, loss of appetite, joint pain, urinating less than usual, blood in your urine, weight gain; low magnesium--dizziness, irregular heartbeats, feeling jittery, muscle cramps, muscle spasms, cough or choking feeling; or new or worsening symptoms of lupus--joint pain, and a skin rash on your cheeks or arms that worsens in sunlight. Taking omeprazole long-term may cause you to develop stomach growths called fundic gland polyps. Talk with your doctor about this risk. If you use omeprazole for longer than 3 years, you could develop a vitamin B-12 deficiency. Talk to your doctor about how to manage this condition if you develop it. Common side effects may include: cold symptoms such as stuffy nose, sneezing, sore throat (especially in children); fever (especially in children); stomach pain, gas; nausea, vomiting, diarrhea; or headache. This is not a complete list of side effects and others may occur. Call your doctor for medical advice about side effects. You may report side effects to FDA at 9-633-SUB-0097. What other drugs will affect omeprazole? Sometimes it is not safe to use certain medications at the same time. Some drugs can affect your blood levels of other drugs you take, which may increase side effects or make the medications less effective. Tell your doctor about all your current medicines. Many drugs can affect omeprazole, especially: digoxin; clopidogrel; methotrexate; Comobabi's wort; a diuretic or 'water pill'; or an antibiotic--amoxicillin, clarithromycin, rifampin. This list is not complete and many other drugs may affect omeprazole. This includes prescription and jjbe-obe-lwbafyq medicines, vitamins, and herbal products. Not all possible drug interactions are listed here. Where can I get more information? Your pharmacist can provide more information about omeprazole. Remember, keep this and all other medicines out of the reach of children, never share your medicines with others, and use this medication only for the indication prescribed. Every effort has been made to ensure that the information provided by [employer]') is accurate, up-to-date, and complete, but no guarantee is made to that effect. Drug information contained herein may be time sensitive. [employer] information has been compiled for use by healthcare practitioners and consumers in the [place] and therefore [employer] does not warrant that uses outside of the [place] are appropriate, unless specifically indicated otherwise. [employer]'s drug information does not endorse drugs, diagnose patients or recommend therapy. [facility] drug information is an informational resource designed to assist licensed healthcare practitioners in caring for their patients and/or to serve consumers viewing this service as a supplement to, and not a substitute for, the expertise, skill, knowledge and judgment of healthcare practitioners. The absence of a warning for a given drug or drug combination in no way should be construed to indicate that the drug or drug combination is safe, effective or appropriate for any given patient. [facility] does not assume any responsibility for any aspect of healthcare administered with the aid of information [facility] provides. The information contained herein is not intended to cover all possible uses, directions, precautions, warnings, drug interactions, allergic reactions, or adverse effects. If you have questions about the drugs you are taking, check with your doctor, nurse or pharmacist. Copyright 6856-6356 [facility]. Version: .. Revision Date: 10/11/2021. Education Materials GERD (Adult) The esophagus is a tube that carries food from the mouth to the stomach. A valve (the LES, lower esophageal sphincter) at the lower end of the esophagus prevents stomach acid from flowing upward. When this valve doesn't work properly, stomach contents may repeatedly flow back up (reflux) into the esophagus. This is called gastroesophageal reflux disease (GERD). GERD can irritate the esophagus. It can cause problems with pain, swallowing or breathing. In severe cases, GERD can cause recurrent pneumonia (from aspiration or breathing in particles) or other serious problems. Symptoms of reflux include burning, pressure or sharp pain in the upper abdomen or mid to lower chest. The pain can spread to the neck, back, or shoulder. There may be belching, an acid taste in the back of the throat, chronic cough, or sore throat, or hoarseness. GERD symptoms often occur during the day after a big meal. They can also occur at night when lying down. Home care Lifestyle changes can help reduce symptoms. If needed, your healthcare provider may prescribe medicines. Symptoms often improve with treatment, but if treatment is stopped, the symptoms often return after a few months. So most persons with GERD will need to continue treatment or get treatment on and off. Lifestyle changes Limit or avoid fatty, fried, and spicy foods, as well as coffee, chocolate, mint, and foods with high acid content such as tomatoes and citrus fruit and juices (orange, grapefruit, lemon). Don t eat large meals, especially at night. Frequent, smaller meals are best. Don't lie down right after eating. And don t eat anything 3 hours before going to bed. Don't drink alcohol or smoke. As much as possible, stay away from second hand smoke. If you are overweight, losing weight will reduce symptoms. Don't wear tight clothing around your stomach area. If your symptoms occur during sleep, use a foam wedge to elevate your upper body (not just your head.) Or, place 4 blocks under the head of your bed. Or use 2 bed risers under your bedframe. Medicines If needed, medicines can help relieve the symptoms of GERD and prevent damage to the esophagus. Discuss a medicine plan with your healthcare provider. This may include one or more of the following medicines: Antacids to help neutralize the normal acids in your stomach. Acid blockers (Histamine or H2 blockers) to decrease acid production. Acid inhibitors (proton pump inhibitors PPIs) to decrease acid production in a different way than the blockers. They may work better, but can take a little longer to take effect. Take an antacid 30 to 60 minutes after eating and at bedtime, but not at the same time as an acid alyse. Try not to take medicines such as ibuprofen and aspirin. If you are taking aspirin for your heart or other medical reasons, talk to your healthcare provider about stopping it. Follow-up care Follow up with your healthcare provider or as advised by our staff. When to seek medical advice Call your healthcare provider if any of the following occur: Stomach pain gets worse or moves to the lower right abdomen (appendix area) Chest pain appears or gets worse, or spreads to the back, neck, shoulder, or arm An zdtp-hlh-vynkelc trial of medicine doesn't relieve your symptoms Weight loss that can't be explained Trouble or pain swallowing Frequent vomiting (can t keep down liquids) Blood in the stool or vomit (red or black in color) Feeling weak or dizzy Fever of 100.4 F (38 C) or higher, or as directed by your healthcare provider [id number] [employer]. [address] [place] [address], [place] [address]. All rights reserved. This information is not intended as a substitute for professional medical care. Always follow your healthcare professional's instructions. Additional Information VACCINATE! IT SAVES LIVES! Members of the community who have not yet received the COVID-19 vaccine and would like to receive it can visit one of [facility] vaccine clinics. There are many vaccine clinic locations within the [facility]. For locations and available times, please visit [email or web address] It is important to note that some COVID mobile vaccine clinics are held outdoors and may be canceled in rainy or stormy conditions. To learn more about pediatric vaccinations (ages 5-11), we invite you to visit the [facility] webpage. [email or web address] [email or web address]-Nqhvz-Pkznzynrtpw-Freq [email or web address]-Lgmml-[email or web address].[email or web address] To learn more about the COVID-19 vaccine, we invite you to visit the CDC website for a list of frequently asked questions. https://www.cdc.gov/coronavirus/ 2019-ncov/vaccines/faq.html [facility] Patient Portal Access Instructions: Stay connected with your healthcare team and access your personal medical information anytime with the [facility] Patient Portal. If you would like a full copy of your medical records please contact the [facility] Medical Records Department Monday through Monday between 8a.m. and 4:30p.m. Please follow the directions below to access the portal: 1.Access the email account you provided upon registration to the hospital.2.Look for an invitation email from [facility].3.Open the email and access the invitation link: Accept Invitation to [email or web address].Fill in the required purvis to create your account. Sign into www.[employer] with your username and password that you created in the above steps to stay up to date. You can then view a summary of results, a summary of your visits, and the ability to download your summaries to your computer or send the information securely to a physician. Remember that your healthcare information is confidential, so carefully consider who you will allow to register on the [facility] Patient Portal for access to your information. You can also access the [facility] Patient Portal on the [employer]. Simply click on Health Records under Health Data and then click on the [employer]berly logo. HOW TO SAFELY DISPOSE OF PRESCRIPTION MEDICATIONS Please use one of the following methods to safely dispose of your unused medications. 1.Use a drug disposal kit: the drug disposal pouch allows you to safely discard your old and unused drugs. Ask your nurse to give you one when you are discharged.2.Visit a local take-back location: Many local pharmacies and police departments have programs that collect old and unwanted prescription drugs. Call your local pharmacy or go to http://Floxx.Identified/8F9Jq0w to find one close to you.3.Make use of household items: Use cat litter or old coffee grounds to dispose medications if other options are not available. Mix your drugs with these household products, seal them in an airtight container and throw it into the garbage. Call [facility]: [phone] to be sure your drugs can be disposed of in this way. Some medicines may require a different approach.4.Never flush your medications down the toilet. IF YOU HAVE BEEN PRESCRIBED AN OPIOIDS FOR PAIN If you have been prescribed an opioid (such as hydrocodone, oxycodone or morphine), it is critical to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
== END 2023-11-14 13:25 | disposition left against medical advice (07) ==
PROVIDERS: PCP Nurse Practitioner Primary Care
DX: Z04.9 Encounter for examination and observation for unspecified reason (principal); Y09 Assault by unspecified means

== ENCOUNTER 2024-09-07 14:01 | Emergency (ER) | payer OTHER, SELFPAY ==
[2024-09-07 14:01] VITALS: BP 131/68; PULSE 99; RESP 15; TEMP 36.6; O2SAT 100; BMI 30.8
--- NOTE | 2024-09-07 14:29 | EDS_ITS ---
HPI History of Present Illness Chief Complaint: Shortness of Breath Detail of Chief Complaint: Shortness of breath and bodyaches Informant: patient Narrative Narrative: Patient presents the emergency department complaint shortness of breath and feeling achy. Patient started feeling poorly yesterday. He denies fever. Denies significant cough or runny nose. Denies sore throat. Denies headache. Went to urgent care and was referred to the ER in case he would need a chest x- ray. Patient denies recent travel or surgery. He states he chronically has chest pain. No history of PE or history of DVT. No history of asthma. [facility] Medical History Substance abuse Home Medications ?Medication ?Instructions ?Recorded ?Last Taken ?Type NK 09/07/24 Unknown History Allergy/AdvReac Type Severity Reaction Status Date / Time prazosin Allergy Other Verified 09/07/24 14:01 Social History Smoking Status: Current every day smoker tobacco type: e-cigarettes ROS ROS ED Review of Systems ROS Unobtainable: other Constitutional Constitutional ED: Reports lethargy; Denies chills, fever(s), sweats or weight loss Eyes Eyes: Denies blurry vision, change in vision or diplopia ENT ENT ED: Denies rhinorrhea or sore throat Cardiovascular Cardiovascular: Reports chest pain; Denies orthopnea or racing heartbeat Respiratory/Chest Respiratory/Chest: Reports dyspnea; Denies cough, dyspnea on exertion, orthopnea or sputum Gastrointestinal Gastrointestinal: Denies abdominal pain, diarrhea, nausea or vomiting Genitourinary Genitourinary ED: Denies dysuria, hematuria or urinary frequency Musculoskeletal Musculoskeletal: Denies arthralgias, back pain, myalgias or neck pain Integumentary Denies abscess, Abrasions or rash Neurologic Neurologic: Denies headache(s) or weakness Psychiatric Psychiatric: Denies anxiety, depression or suicidal thoughts Endocrine Endocrinology: Denies polydipsia, polyphagia or polyuria Hematologic/Lymphatic Hematologic/Lymphatic: Denies easy bleeding, easy bruising or lymphadenopathy Allergic/Immunologic Allergic/Immunologic ED: Denies mouth swelling, tongue swelling or urticaria EXAM Physical Exam Const Vital Signs: 09/07/24 14:01 09/07/24 14:43 Temperature 98 F Temperature Source Oral Pulse Rate 99 Respiratory Rate 15 Respiratory Effort Normal Non-Labored Blood Pressure 131/68 H Blood Pressure Mean 89 Pulse Ox 100 Oxygen Delivery Method Room Air Positive well nourished and well developed General Appearance ED: well developed and NAD HEENT Reports TM's clear and moist mucous membranes normocephalic and atraumatic; Negative for trauma or tenderness Tympanic Membrane ED: Yes TM's clear Eyes PERRL and EOMs intact bilaterally General Eye ED: Negative for pale conjunctiva or scleral icterus Neck no lymphadenopathy, supple and no JVD General: Negative for tenderness Chest Wall inspection of chest normal and palpation of chest normal Chest: Negative for tenderness Resp normal respiratory effort and clear to auscultation bilaterally Effort and Inspection: Negative for respiratory distress or pain with movement Auscultation: Negative for rhonchi, wheezes or diminished lung sounds Cardio regular rate, regular rhythm, S1 normal heart sound, S2 normal heart sound and no murmurs Peripheral Pulses: pulses 2+ throughout GI normal to inspection, nondistended, normoactive bowel sounds, soft to palpation, non-tender, non-distended and no masses Back/Spine no CVA tenderness and no thoracic nor lumbar tenderness Extremity normal to inspection General Extremety ED: Negative for edema General Extremity: Negative for edema Neuro oriented x3, CN's II-XII intact bilaterally, no sensory deficits noted and gait normal Sensorium / Orientation: awake, alert, oriented to person, oriented to place and oriented to time Motor Exam: strength 5/5 throughout and strength abnormal Psych mental status grossly normal Skin no rashes or lesions noted and no wounds MDM MDM MDM Narrative Medical decision making narrative: Patient presents to the emergency department with complaint of some dyspnea and chronic chest pain. States has not been feeling well since yesterday. He has got body aches. Multiple sick contacts at work at home. Work sent him home today and wanted him evaluated. Seen at urgent care and referred to the ER. Clinically looks well with essentially normal vital signs. Clinically I suspect likely a viral URI. He did not want to do testing for COVID flu and RSV and states he can test for COVID at home. We did do a chest x-ray given this plaint of chest pain and shortness of breath and this was normal on my interpretation. There is no evidence of infiltrate or pneumothorax or acute disease process. At this point will be discharged to home. Suspect likely of viral URI/syndrome. Advised to follow-up with primary care physician in 3 to 5 days. Lab Data Attestation: I reviewed the patient's lab results. Radiography Diagnostic Testin view chest x-ray obtained interpreted by myself as no evidence of infiltrate or pneumothorax or acute disease process. Discharge Plan Triage Chief Complaint: Shortness of Breath ED Provider: Shelia Olivo Dx/Rx/DC Orders Clinical Impression: Acute viral syndrome Instructions: ED Viral Syndrome (Adult), ED URI, Viral, No Abx (Adult) Prescriptions: No Action NK Primary Care Provider: Rosita Carlos NP Referrals: Rosita Carlos NP, [employer] [facility] [Primary Care Provider] - 3-5 Days Print Language: Sinhala Disposition Disposition: Home, Self Care
--- NOTE | 2024-09-07 14:35 | RAD_ITS ---
EXAM: XR CHEST, 2 VIEWS CLINICAL INDICATION: dyspnea TECHNIQUE: Frontal and lateral views of the chest. COMPARISON: Two-view chest 03/04/2020 FINDINGS: LUNGS AND PLEURAL SPACES: Unremarkable. No consolidation or edema. No pneumothorax. No effusion. HEART: Unremarkable. Cardiac silhouette not enlarged. MEDIASTINUM: Central airways and mediastinal contour are unremarkable. BONES/JOINTS: Unremarkable. No acute fracture. SOFT TISSUES: Unremarkable. RAD/Chest PA and Lateral IMPRESSION: No radiographic evidence of acute cardiopulmonary disease. Electronically Signed: Jonatan Babb MD at 16:01 EST ,
--- NOTE | 2024-09-07 14:36 | ED.RN ---
Patient ambulated to radiology
[2024-09-07 15:07] VITALS: BP 126/78; PULSE 64; RESP 18; TEMP 36.9; O2SAT 99
== END 2024-09-07 15:08 | disposition home or self-care (01) ==
PROVIDERS: Emergency Provider Emergency Medicine; PCP Nurse Practitioner Primary Care; Visit Provider Emergency Medicine
DX: B34.9 Viral infection, unspecified (principal); R07.9 Chest pain, unspecified; R06.02 Shortness of breath; G89.29 Other chronic pain; F17.210 Nicotine dependence, cigarettes, uncomplicated
CPT/HCPCS: 71046; 99282

== ENCOUNTER 2024-11-19 09:04 | Emergency (ER) | payer OTHER, SELFPAY ==
[2024-11-19 09:05] VITALS: BP 121/77; PULSE 72; RESP 20; TEMP 36.2; O2SAT 100; BMI 29.2
--- NOTE | 2024-11-19 09:10 | EKG12_ITS ---
Test Reason : SYNCOPE Blood Pressure : */* mmHG Vent. Rate : 68 BPM Atrial Rate : 68 BPM P-R Int : 136 ms QRS Dur : 102 ms QT Int : 380 ms P-R-T Axes : 54 24 21 degrees QTcB Int : 404 ms Normal sinus rhythm with sinus arrhythmia Normal ECG Confirmed by HUAN WEAVER, HOLLIE ([id number]), editor news YUMIKO PHELPS ([id number]) on 11/25/2024 11:14:08 AM Referred By: Confirmed By: HOLLIE PRESSLEY MD
--- NOTE | 2024-11-19 09:36 | EDS_ITS ---
HPI History of Present Illness Chief Complaint: Syncope Narrative Narrative: Patient is a 24-year-old male with past medical history of substance abuse who presents to the emergency department with a chief complaint of passing out last night. Patient states that he got up around 3:00 in the morning to use the restroom and notes that his stepfather picked him up off the ground he does not recall what happened. He states that he passed out a long time ago. He states that he has had intermittent chest pain for a significant time he states that drinking red bull makes this worse. [facility] Medical History Substance abuse Home Medications ?Medication ?Instructions ?Recorded ?Last Taken ?Type NK 09/07/24 Unknown History Allergy/AdvReac Type Severity Reaction Status Date / Time prazosin Allergy Other Verified 11/19/24 09:06 Family History no significant family his Social History Smoking Status: Current every day smoker tobacco type: e-cigarettes ROS ROS ED ROS Narrative Constitutional: Complains of headache and lightheadedness denies fevers, chills, Eyes: Denies change in vision double vision blurry vision Cardiovascular: Complains of chest pain as noted above denies palpitation Respiratory: Denies coughing wheezing shortness of breath Abdomen: Denies abdominal pain nausea vomit diarrhea : Denies urinary symptoms Neurological: Denies numbness, weakness, tingling Musculoskeletal: Denies back pain Skin: Denies rashes or lesions EXAM Physical Exam Narrative Exam Narrative: General: Patient lying in bed rest comfortably did not appear to be in acute distress Head: Atraumatic, normocephalic Eyes: PERRL bilaterally, EOMI bilaterally, no conjunctival injection noted Neck: Soft, supple, trachea midline, no tense palpation midline cervical spine Cardiovascular: Regular rate and rhythm no murmurs gallops rubs noted Respiratory: Clear to auscultation bilaterally Abdomen: Soft, nondistended, nontender to palpation Musculoskeletal: All bony prominences palpated joints taken to full range of motion no pain elicited Extremities: +5/5 strength noted in the bilateral upper and lower extremities, radial pulses +2/4 in the bilateral extremities Neurological: Patient following commands knew that he was at [facility] year is 2024 Skin: Warm, dry, intact no rashes or lesions noted Const Vital Signs: 11/19/24 09:05 11/19/24 09:11 11/19/24 11:05 Temperature 97.2 F L Temperature Source Temporal Pulse Rate 72 97 Respiratory Rate 20 H Respiratory Effort Normal Non-Labored Respiratory Pattern Normal Blood Pressure 121/77 H Blood Pressure Mean 91 Pulse Ox 100 98 Oxygen Delivery Method Room Air Room Air MDM MDM MDM Narrative Medical decision making narrative: Patient is a 24-year-old male who presented to the emergency department the chief complaint of passing out after using the restroom earlier this morning. On the differential diagnose includes but limited to vasovagal syncope, electrolyte abnormality, orthostatic hypotension. Once workup is obtained reviewed he will be reevaluated. Patient be given IV fluids and Tylenol. [place] CT head rule negative. Revised Fergus score low risk. Patient CBC reviewed and showed no evidence leukocytosis white blood count normal at 8.1, hemoglobin 15.6, plate count was noted be 344. Patient sodium normal 137, potassium normal 4.1, creatinine normal at 0.92. Patient's troponin was less than 6 EKG showed sinus rhythm with a rate of 60 bpm. Patient chest x- ray reviewed by myself and by radiology which showed hyperinflation otherwise no acute cardiopulmonary processes. Patient ambulated well here in the emergency department no tachycardia no hypoxia felt well and feels much better would like to go home at this point time. Patient is advised to refrain from drinking lots of energy drinks and increase his water intake. He is advised to follow-up his primary care physician outpatient setting return with worsening symptoms and concerns. He is agreeable this plan all question concerns answered he is discharged home in stable condition. Lab Data Labs: Laboratory Results - last 24 hr 11/19/24 09:30 WBC 8.1 RBC 5.23 Hgb 15.6 Hct 44.7 MCV 85.5 MCH 29.8 MCHC 34.9 RDW Std Deviation 38.5 RDW Coeff of Barry 12.5 Plt Count 344 MPV 9.6 Immature Gran % (Auto) 0.500 Neut % (Auto) 72.5 H Lymph % (Auto) 17.3 L [place] % (Auto) 8.2 Eos % (Auto) 0.9 Baso % (Auto) 0.6 Absolute Neuts (auto) 5.8 Absolute Lymphs (auto) 1.39 Nucleated RBC % 0 Sodium 137 Potassium 4.1 Chloride 102 Carbon Dioxide 22.3 Anion Gap 12 BUN 9 Creatinine 0.92 Estim Creat Clear Calc 124.64 Est GFR (MDRD) Non-Af 119 BUN/Creatinine Ratio 9.5 L Glucose 102 H Calcium 8.9 Troponin T High Sens < 6 Radiography Diagnostic Testing: Clinical Impression(s) from Imaging Studies Chest X-Ray 11/19/24 10:00 IMPRESSION: Hyperinflation. The lungs are clear. Reading Location: [facility] Discharge Plan Triage Chief Complaint: Syncope ED Provider: Louis Damon Dx/Rx/DC Orders Clinical Impression: Syncope Prescriptions: No Action NK Primary Care Provider: Rosita Carlos NP Referrals: Rosita Carlos NP, [facility] [Primary Care Provider] - Activity Restrictions/Additional Instructions: Follow-up with your doctor in outpatient setting. Ensure you are drinking plenty of fluids including water. Your chest x-ray here today overall did not show any acute findings and your blood work was normal as well. Follow-up your primary care physician and return with worsening symptoms and concerns Print Language: Welsh Disposition Disposition: Home, Self Care
[2024-11-19] MEDS: Acetaminophen 500 MG Tablet 1000 MG PO (09:37)
[2024-11-19 09:41] LABS: Absolute Lymphocyte Count 1.39 X10^3/uL (0.83-4.51); Absolute Neutrophil Count 5.8 X10^3/uL (2.0-7.7); Basophil# 0.05 X10^3/uL; Basophil% 0.6 % (0-1); Eosinophil# 0.07 X10^3/uL; Eosinophils% 0.9 % (0-5); Hematocrit 44.7 % (40-54); Hemoglobin 15.6 g/dL (13.0-16.5); Lymphocyte # 1.39 X10^3/ul (0.83-4.51); Lymphocyte % 17.3 % (19-41); Mean Corp Hgb Conc 34.9 g/dL (32-36); Mean Corpuscular Hgb 29.8 pg (27.0-32.0); Mean Corpuscular Volume 85.5 fL (80-94); Mean Platelet Vol. 9.6 fl (6.2-12.0); Monocyte# 0.66 X10^3/uL; Monocyte% 8.2 % (0-10); NRBC Flagged by Analyzer 0 % (0-5); Neutrophil # 5.84 X10^3/uL (2.7-7.7); Neutrophil % 72.5 % (47-70); Platelet Count 344 K/mm3 (150-450); RBC Distribution Width CV 12.5 % (11.6-14.6); RBC Distribution Width SD 38.5 fl (35.1-43.9); Red Blood Count 5.23 M/mm3 (4.6-6.2); White Blood Count 8.1 K/mm3 (4.4-11.0)
[2024-11-19] MEDS: 0.9% Normal Saline (1000mL) 1,000 ML 999 ML IV (10:00)
--- NOTE | 2024-11-19 10:00 | RAD_ITS ---
PROCEDURE: CHEST PA AND LATERAL REASON FOR EXAM: CHEST PAIN Recent syncopal episode. TECHNIQUE: Frontal and lateral views of the chest. COMPARISON: Comparison is made with prior study dated August 30, 2024. FINDINGS: The cardiothymic contour is normal. Hyperinflation. The lungs are clear. The bones are unremarkable. RAD/Chest PA and Lateral IMPRESSION: Hyperinflation. The lungs are clear. Reading [facility]
[2024-11-19 10:32] LABS: Troponin T High Sensitivity < 6 ng/L (<=22)
[2024-11-19 10:37] VITALS: O2SAT 100
[2024-11-19 10:41] LABS: Anion Gap 12 (5-15); BUN 9 mg/dL (4-19); BUN/Creat Ratio 9.5 RATIO (10-20); Calcium,Total 8.9 mg/dL (7.6-11.0); Carbon Dioxide 22.3 mmol/L (21.0-32.0); Chloride 102 mmol/L (98-108); Creatinine, Serum 0.92 mg/dL (0.70-1.20); EST Glomerular Filtration Rate 119 (>60); Estimated Creatinine Clearance 124.64 ml/min (50-250); Glucose 102 mg/dL (70-99); Potassium 4.1 mmol/L (3.3-5.1); Sodium Level 137 mmol/L (133-145)
[2024-11-19 11:05] VITALS: PULSE 97; O2SAT 98
[2024-11-19 11:38] VITALS: BP 114/50; PULSE 72; RESP 16; TEMP 36.2; O2SAT 99
== END 2024-11-19 11:41 | disposition home or self-care (01) ==
PROVIDERS: Emergency Provider Emergency Medicine; PCP Nurse Practitioner Primary Care; Visit Provider Emergency Medicine
DX: R55 Syncope and collapse (principal); F17.290 Nicotine dependence, other tobacco product, uncomplicated; R07.9 Chest pain, unspecified
CPT/HCPCS: 71046; 80048; 84484; 85025; 93005; 96360; 99284; A4216

== ENCOUNTER 2025-06-13 10:59 | Emergency (ER) | payer OTHER, SELFPAY ==
[2025-06-13 10:59] VITALS: BP 122/77; PULSE 78; RESP 15; TEMP 36.4; O2SAT 99; BMI 26.5
--- NOTE | 2025-06-13 11:29 | EDS_ITS ---
HPI History of Present Illness Chief Complaint: Chest Pain Narrative Narrative: Patient is a 25-year-old male presenting to the emergency department for an episode of chest pain this morning around 6:30 AM. Patient has no significant past medical history. No past medical history of hypertension, diabetes or hyperlipidemia. No family history of sudden cardiac . Patient states that he was in a tree stand while hunting and was just sitting. States he developed a left-sided allover dull chest pain that lasted about 10 to 15 minutes. States he was feeling shortness of breath with it. States that all of his symptoms have now improved. Has no complaints at this time. Denies fever, chills, nausea, vomiting, diaphoresis, abdominal pain. Denies any cough, sore throat, rhinorrhea. Denies any current drug use, states he used to have substance use issues. CVD Risk Factors: Negative for Hypertension, Diabetes, Hypercholesterolemia, Family History 1' </=55 or Smoking PE Risk Factors: Negative for Recent Travel/Surgery, Recent Immobilization, Prior DVT or PE or Cancer [facility] Medical History Substance abuse Home Medications ?Medication ?Instructions ?Recorded ?Last Taken ?Type NK 09/07/24 Unknown History Allergy/AdvReac Type Severity Reaction Status Date / Time prazosin Allergy Other Verified 06/13/25 11:02 Social History Smoking Status: Current every day smoker tobacco type: e-cigarettes ROS ROS ED ROS Narrative See HPI EXAM Physical Exam Narrative Exam Narrative: Vital signs: Reviewed General: Alert and oriented. No acute distress HEENT: Head is normocephalic and atraumatic, sinuses nontender, pupils equal round and reactive. Nares are patent. Oropharynx and throat exams normal. Neck: Supple without lymphadenopathy nontender Cardiovascular: Regular rate and rhythm, no murmurs. No rubs or gallops. Normal S1 and S2 Respiratory: Clear to auscultation bilaterally. No wheezes, rales, rhonchi Abdominal: Soft and nontender. Normal bowel sounds. No guarding or rebound. Nonsurgical abdomen Extremities: No lower extremity edema. No tenderness. No bruising. Normal range of motion. Normal sensation. Skin: No rash or redness. Neurological: Cranial nerves II through XII are grossly intact. Normal strength and sensation. Normal cerebellar function The rest of the physical exam is unremarkable Const Vital Signs: 06/13/25 10:59 06/13/25 10:59 06/13/25 11:59 Temperature 97.6 F L Temperature Source Oral Pulse Rate 78 57 L Respiratory Rate 15 17 Respiratory Effort Normal Non-Labored Respiratory Pattern Normal Blood Pressure 122/77 H 111/70 Blood Pressure Mean 92 83 Pulse Ox 99 100 Oxygen Delivery Method Room Air Room Air 06/13/25 13:00 06/13/25 13:49 Temperature 98.1 F Temperature Source Pulse Rate 59 L 59 L Respiratory Rate 18 18 Respiratory Effort Respiratory Pattern Blood Pressure 102/72 102/72 Blood Pressure Mean 82 82 Pulse Ox 100 100 Oxygen Delivery Method Heart Score History: Slightly/Non-Suspicious ECG: Normal Age: </= 45 years Risk Factors: No Risk Factors Troponin: </= Normal Limit Score: 0 MDM MDM MDM Narrative Medical decision making narrative: Patient is a 25-year-old male presenting to the emergency department with left- sided chest pain that lasted about 10 to 15 minutes. Patient was seen and examined. Vitals are stable. Patient resting in bed comfortably no acute distress. EKG shows sinus bradycardia at a rate of 53 with a sinus arrhythmia. No ischemic changes. CBC with no leukocytosis and normal hemoglobin. BMP with no significant normalities. Troponin within normal limits. Chest x-ray reviewed by myself, no opacities, pneumothorax or wide mediastinum. Radiology read with negative findings as well. Patient reevaluated. No reoccurrence of the chest pain. Very low risk, heart score of 0. Patient was updated on the negative workup. Patient discharged from the Emergency Department. I do not feel that the patient's evaluation reveals any acute reason for admission at this time. I instructed them to either follow-up with their primary care physician or promptly return to the Emergency Department for reevaluation should symptoms worsen or new symptoms develop. I explained what symptoms would indicate the need to return to the emergency department. Shared decision making was used. The patient voiced understanding of the treatment plan and is agreeable with it. Clinical impression: Chest pain of uncertain etiology History & Record Review Discussion w/independent historian: Patient Lab Data Attestation: I reviewed the patient's lab results. Labs: Laboratory Results - last 24 hr 06/13/25 12:12 WBC 7.0 RBC 4.94 Hgb 14.7 Hct 41.7 MCV 84.4 MCH 29.8 MCHC 35.3 RDW Std Deviation 35.6 RDW Coeff of Barry 11.6 Plt Count 297 MPV 9.3 Immature Gran % (Auto) 0.100 Neut % (Auto) 67.7 Lymph % (Auto) 21.6 [place] % (Auto) 8.3 Eos % (Auto) 1.7 Baso % (Auto) 0.6 Absolute Neuts (auto) 4.7 Absolute Lymphs (auto) 1.50 Nucleated RBC % 0 Sodium 139 Potassium 4.0 Chloride 102 Carbon Dioxide 25.2 Anion Gap 12 BUN 10 Creatinine 1.06 Estim Creat Clear Calc 96.13 Est GFR (MDRD) Non-Af 100 BUN/Creatinine Ratio 9.4 L Glucose 95 Calcium 9.2 Troponin T High Sens < 6 Radiography Chest X-Ray - ED: 2 View, Read by ED Physician, Normal and No Infiltrates Diagnostic Testing: Clinical Impression(s) from Imaging Studies Chest X-Ray 06/13/25 12:45 IMPRESSION: No acute abnormality Reading Location: [facility] Discharge Plan Triage Chief Complaint: Chest Pain ED Provider: Amparo Marley Dx/Rx/DC Orders Clinical Impression: Chest pain of uncertain etiology Instructions: ED Chest Pain, Uncertain Cause Prescriptions: No Action NK Primary Care Provider: Rosita Carlos NP Referrals: Rosita Carlos NP, [facility] [Primary Care Provider, Family Practice] - 2 Days Activity Restrictions/Additional Instructions: Your evaluation in the Emergency Department did not reveal any acute reason for admission. However, I want to emphasize that you may be early in the course of a disease process or illness even if it is not present. For this reason you should follow-up within 24 hours for reevaluation with either your primary care physician or if necessary back here in the Emergency Department. You should return to the Emergency Department immediately if your symptoms worsen or new s ymptoms develop. Print Language: Austrian Disposition Disposition: Home, Self Care Discharge Date/Time: 06/13/25 13:50
[2025-06-13 11:59] VITALS: BP 111/70; PULSE 57; RESP 17; O2SAT 100
--- NOTE | 2025-06-13 12:04 | EKG12_ITS ---
Test Reason : CP Blood Pressure : */* mmHG Vent. Rate : 53 BPM Atrial Rate : 53 BPM P-R Int : 138 ms QRS Dur : 104 ms QT Int : 390 ms P-R-T Axes : 55 6 8 degrees QTcB Int : 365 ms Sinus bradycardia with sinus arrhythmia Otherwise normal ECG Confirmed by HUAN WEAVER, HOLLIE ([id number]), food editor YUMIKO PHELPS ([id number]) on 06/16/2025 6:21:54 AM Referred By: Confirmed By: HOLLIE PRESSLEY MD
[2025-06-13 12:21] LABS: Hematocrit 41.7 % (40-54); Hemoglobin 14.7 g/dL (13.0-16.5); Immature Granulocytes Count 0.010 X10^3/uL (0.0-0.0); Mean Corp Hgb Conc 35.3 g/dL (32-36); Mean Corpuscular Volume 84.4 fL (80-94); Mean Platelet Vol. 9.3 fl (6.2-12.0); NRBC Flagged by Analyzer 0 % (0-5); Platelet Count 297 K/mm3 (150-450); RBC Distribution Width CV 11.6 % (11.6-14.6); RBC Distribution Width SD 35.6 fl (35.1-43.9); Red Blood Count 4.94 M/mm3 (4.6-6.2); White Blood Count 7.0 K/mm3 (4.4-11.0)
--- NOTE | 2025-06-13 12:45 | RAD_ITS ---
PROCEDURE: CHEST PA AND LATERAL 06/13/2025 REASON FOR EXAM: CHEST PAIN TECHNIQUE: Procedure Code: RADCXR Modality: DX Procedure: CHEST PA AND LATERAL COMPARISON: November 19, 2024 FINDINGS: Hardware: EKG leads Heart: Normal Mediastinum: Normal Lungs: Clear. No pneumothorax or pleural effusion. Bones: The bones are unremarkable. RAD/Chest PA and Lateral IMPRESSION: No acute abnormality Reading Location: [id number]
[2025-06-13 13:00] VITALS: BP 102/72; PULSE 59; RESP 18; O2SAT 100
[2025-06-13 13:23] LABS: Anion Gap 12 (5-15); BUN 10 mg/dL (4-19); BUN/Creat Ratio 9.4 RATIO (10-20); Calcium,Total 9.2 mg/dL (7.6-11.0); Carbon Dioxide 25.2 mmol/L (21.0-32.0); Chloride 102 mmol/L (98-108); Estimated Creatinine Clearance 96.13 ml/min (50-250); Glucose 95 mg/dL (70-99); Potassium 4.0 mmol/L (3.3-5.1); Troponin T High Sensitivity < 6 ng/L (<=22)
[2025-06-13 13:49] VITALS: BP 102/72; PULSE 59; RESP 18; TEMP 36.7; O2SAT 100
== END 2025-06-13 13:50 | disposition home or self-care (01) ==
PROVIDERS: Emergency Provider Student in an Organized Health Care Education/Training Program; PCP Nurse Practitioner Primary Care; Visit Provider Student in an Organized Health Care Education/Training Program
DX: R07.9 Chest pain, unspecified (principal); F17.210 Nicotine dependence, cigarettes, uncomplicated
CPT/HCPCS: 71046; 80048; 84484; 85025; 93005; 99284